=== PATIENT | female | born 1975 | race Caucasian/White ===

== ENCOUNTER 2017-07-01 16:31 | Emergency (ER) | payer MEDICAID ==
[2017-07-01 16:46] VITALS: BP 156/86
[2017-07-01] MEDS ORDERED: Acetaminophen/HYDROcodone 325-5 MG Tab PO ONE (16:59)
--- NOTE | 2017-07-01 17:05 | EDM.PDOC ---
ED HPI GENERAL MEDICAL PROBLEM - General Chief Complaint: ENT Problem Stated Complaint: toothache Time Seen by Provider: 07/01/17 16:50 Source of Information: Reports: Patient History Limitations: Reports: No Limitations - History of Present Illness INITIAL COMMENTS - FREE TEXT/NARRATIVE: Mehnaz presents with complaints of upper left dental pain for 2 days. She has not taken naproxen or ibuprofen for pain. 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: - Past Surgical History HEENT Surgical History: Reports: Oral Surgery Social & Family History - Family History Cardiac: Reports: Hypertension Endocrine/Metabolic: Reports: Hypothyroidism - Tobacco Use Smoking Status *Q: Heavy Tobacco Smoker Years of Tobacco use: 30 Packs/Tins Daily: 1 Used Tobacco, but Quit: No Second Hand Smoke Exposure: Yes - Caffeine Use Caffeine Use: Reports: Soda - Alcohol Use Days Per Week of Alcohol Use: 0 - Recreational Drug Use Recreational Drug Use: No Drug Use in Last 12 Months: Yes Recreational Drug Type: Reports: Marijuana/Hashish Recreational Drug Use Frequency: Monthly Recreational Drug Last Use: 06/26/14 ED ROS ENT - Review of Systems Review Of Systems: See Below Constitutional: Reports: Fever. Denies: Chills, Weakness, Fatigue, Diaphoresis HEENT: Reports: Dental Pain. Denies: Ear Pain, Eye Pain, Nose Pain, Sinus Problem, Throat Pain, Throat Swelling Respiratory: Denies: Shortness of Breath, Wheezing, Cough Cardiovascular: Denies: Chest Pain, Dyspnea on Exertion, Edema, Lightheadedness , Palpitations Endocrine: Reports: No Symptoms GI/Abdominal: Denies: Constipation, Diarrhea, Nausea, Vomiting Musculoskeletal: Denies: Neck Pain, Joint Pain, Joint Swelling, Muscle Pain, Muscle Stiffness Skin: Reports: Other (no edema). Denies: Rash, Erythema, Wound Neurological: Reports: No Symptoms Hematologic/Lymphatic: Reports: No Symptoms Immunologic: Reports: No Symptoms ED EXAM, ENT - Physical Exam Exam: See Below Text/Narrative:: Mehnaz is an alert, oriented and pleasant 42 year old female presenting with complaints of left upper dental pain for 2 days. General Appearance: Alert, WD/WN, Mild Distress Eye Exam: Bilateral Eye: EOMI, PERRL Ears: Normal External Exam, Normal Canal, Hearing Grossly Normal, Normal TMs Nose: Normal Inspection, Normal Mucousa, No Blood Mouth/Throat: Dental Pain, Gum Swelling, Other (Multiple missing teeth and dental caries. Pain to left upper teeth. ). No: Bleeding, Oral Ulcers, Throat Pain, Throat Swelling, Tongue Swelling, Tonsillar Erythema, Tonsillar Exudates, Uvular Deviation, Uvular Edema Head: Atraumatic, Normocephalic. No: Facial Ecchymosis, Facial Swelling, Facial Tenderness, Sinus Tenderness Neck: Normal Inspection, Supple, Non-Tender, Full Range of Motion. No: Lymphadenopathy (R), Lymphadenopathy (L) Respiratory/Chest: No Respiratory Distress, Lungs Clear, Normal Breath Sounds, No Accessory Muscle Use, Chest Non-Tender Cardiovascular: Normal Peripheral Pulses, Regular Rate, Rhythm, No Edema, No Murmur, No Rub Back: Normal Inspection, Full Range of Motion. No: CVA Tenderness (R), CVA Tenderness (L) Extremities: Normal Inspection, Normal Range of Motion, Non-Tender, No Pedal Edema, Normal Capillary Refill Neurological: Alert, Oriented, CN II-XII Intact, Normal Cognition, Normal Gait, No Motor/Sensory Deficits Psychiatric: Normal Affect, Normal Mood Skin: Warm, Dry, Intact, Normal Color, No Rash Lymphatic: No Adenopathy Course - Vital Signs Last Recorded V/S: Last Vital Signs Temp 37.2 C 07/01/17 16:48 Pulse 107 H 07/01/17 16:48 Resp 18 07/01/17 16:48 BP 156/86 H 07/01/17 16:48 Pulse Ox 98 07/01/17 16:48 - Orders/Labs/Meds Meds: Medications Discontinued Medications Generic Name Dose Route Start Last Admin Trade Name Salbadorq PRN Reason Stop Dose Admin Hydrocodone Bitart/Acetaminophen 1 tab 07/01/17 16:59 07/01/17 17:17 [place] 325-5 Mg PO 07/01/17 17:00 1 tab ONETIME ONE Administration Departure - Departure Time of Disposition: 17:13 Disposition: Home, Self-Care 01 Condition: Good Clinical Impression: Dental caries, Pain, dental - Discharge Information Referrals: PCP,None [Primary Care Provider] - Forms: ED Department Discharge Additional Instructions: You are provided a referral to dental this coming as directed. Take naproxen 500mg by mouth twice per day (hard copy script provided for 14 days) Take clindamycin 150mg, two tablets four times a day by mouth until gone. Dental clinic may give you more antibiotics to take, follow up with them as directed. You were given a hydrocodone in the ER to assist with pain. Follow up with primary provider for additional needs/referrals. Return to ER for worsening, issues or concerns. - Assessment/Plan Plan: Patient provided a referral to dental this coming as directed. Take naproxen 500mg by mouth twice per day (hard copy script provided for 14 days) Take clindamycin 150mg, two tablets four times a day by mouth until gone. Dental clinic may give you more antibiotics to take, follow up with them as directed. Patient given a hydrocodone in the ER to assist with pain. Follow up with primary provider for additional needs/referrals. Return to ER for worsening, issues or concerns.
== END 2017-07-01 17:28 | disposition home or self-care (01) ==
LOC: JP.ED 16:31
DX: K02.9 Dental caries, unspecified (principal); F17.210 Nicotine dependence, cigarettes, uncomplicated; Z98.818 Other dental procedure status; Z88.1 Allergy status to other antibiotic agents
CPT/HCPCS: 99283; A9270

== ENCOUNTER 2018-01-12 10:08 | Emergency (ER) | payer MEDICAID ==
[2018-01-12 10:28] VITALS: BP 140/86
[2018-01-12] MEDS ORDERED: Acetaminophen/oxyCODONE 325-5 MG Tab PO ONE (10:45)
--- NOTE | 2018-01-12 10:49 | EDM.PDOC ---
ED HPI GENERAL MEDICAL PROBLEM - General Chief Complaint: ENT Problem Stated Complaint: TOP RT TOOTH PAIN Time Seen by Provider: 01/12/18 10:45 Source of Information: Reports: Patient History Limitations: Reports: No Limitations - History of Present Illness INITIAL COMMENTS - FREE TEXT/NARRATIVE: pt arrived with pain in the rt upper jaw area. She broke a tooth 2 days ago and the pain has been progressive. Onset: Today Duration: Hour(s): Location: Reports: Face Associated Symptoms: Reports: Other (pt broke a tooth and is having swelling of the gums nd increased pain. 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: - Past Surgical History HEENT Surgical History: Reports: Oral Surgery Social & Family History - Family History Cardiac: Reports: Hypertension Endocrine/Metabolic: Reports: Hypothyroidism - Tobacco Use Smoking Status *Q: Current Every Day Smoker Years of Tobacco use: 21 Packs/Tins Daily: 0.5 Used Tobacco, but Quit: No Second Hand Smoke Exposure: Yes - Caffeine Use Caffeine Use: Reports: Soda - Alcohol Use Days Per Week of Alcohol Use: 0 - Recreational Drug Use Recreational Drug Use: No Drug Use in Last 12 Months: Yes Recreational Drug Type: Reports: Marijuana/Hashish Recreational Drug Use Frequency: Monthly Recreational Drug Last Use: 06/26/14 ED ROS ENT - Review of Systems Review Of Systems: See Below Constitutional: Reports: No Symptoms HEENT: Reports: Dental Pain Respiratory: Reports: No Symptoms Cardiovascular: Reports: No Symptoms Endocrine: Reports: No Symptoms GI/Abdominal: Reports: No Symptoms : Reports: No Symptoms ED EXAM, ENT - Physical Exam Exam: See Below Text/Narrative:: pt arrived with increased pain in the rt upper gum line. She broke one of the carrious teeth. Exam Limited By: No Limitations General Appearance: Alert, Anxious, Moderate Distress Ears: Normal TMs Nose: Normal Inspection Mouth/Throat: Dental Tenderness, Dry Mucous Membrane, Other (pt has pain in the upper gum line. She has redness on the gums. ) Head: Atraumatic Neck: Normal Inspection Respiratory/Chest: No Respiratory Distress Cardiovascular: Regular Rate, Rhythm Course - Vital Signs Last Recorded V/S: Last Vital Signs Temp 36.4 C 01/12/18 10:26 Pulse 84 01/12/18 10:26 Resp 14 01/12/18 10:26 BP 140/86 01/12/18 10:26 Pulse Ox 93 L 01/12/18 10:26 - Orders/Labs/Meds Meds: Medications Discontinued Medications Generic Name Dose Route Start Last Admin Trade Name Freq PRN Reason Stop Dose Admin Oxycodone/Acetaminophen 1 tab 01/12/18 10:45 Percocet 325-5 Mg PO 01/12/18 10:46 ONETIME ONE Departure - Departure Time of Disposition: 10:47 Disposition: Home, Self-Care 01 Condition: Fair Clinical Impression: Infected dental caries - Discharge Information Referrals: PCP,None [Primary Care Provider] - Forms: ED Department Discharge Care Plan Goals: keep appt for extraction for thur, motrin 600mg tid, If pt has severe pain use norco 5/325 q6h prn for pain, clindomycin 300mg tid, use yogurt or probiotic while on the antibiotic.
== END 2018-01-12 11:02 | disposition home or self-care (01) ==
LOC: JP.ED 10:08
DX: K02.9 Dental caries, unspecified (principal); F17.210 Nicotine dependence, cigarettes, uncomplicated; Z88.1 Allergy status to other antibiotic agents
CPT/HCPCS: 99283; A9270

== ENCOUNTER 2021-12-20 12:00 | Emergency (ER) | payer MEDICAID ==
[2021-12-20 12:15] VITALS: BP 141/83; PULSE 98
== END 2021-12-20 13:02 | disposition home or self-care (01) ==
LOC: JP.ED 12:00
DX: K04.7 Periapical abscess without sinus (principal); Z72.0 Tobacco use; Z88.8 Allergy status to other drugs, medicaments and biological substances
CPT/HCPCS: 99282; 99283

== ENCOUNTER 2023-10-18 05:06 | Emergency (ER) | payer MEDICAID ==
[2023-10-18 05:22] VITALS: BP 144/77; PULSE 120
[2023-10-18 06:16] LABS: APPEARANCE,URINE CLEAR (CLEAR); BILIRUBIN,URINE NEGATIVE (NEGATIVE); COLOR,URINE YELLOW (YELLOW); GLUCOSE,URINE NEGATIVE (NEGATIVE); KETONES,URINE NEGATIVE (NEGATIVE); LEUKOCYTE ESTERASE,URINE NEGATIVE (NEGATIVE); NITRITE,URINE NEGATIVE (NEGATIVE); OCCULT BLOOD,URINE TRACE-INTACT (NEGATIVE); PROTEIN,URINE NEGATIVE (NEGATIVE); UROBILINOGEN,URINE 0.2 EU/dL (0.2-1.0)
[2023-10-18 06:41] LABS: AMORPHOUS SEDIMENT,URINE RARE; BACTERIA,URINE FEW; EPITHELIAL CELLS,URINE FEW; MUCUS,URINE NOT SEEN; RBC,URINE NOT SEEN (0-5); WBC,URINE NOT SEEN (0-5)
[2023-10-18 06:50] LABS: CORONAVIRUS COVID-19 NAA NEGATIVE (NEGATIVE); INFLUENZA A NAA NEGATIVE (NEGATIVE); INFLUENZA B NAA NEGATIVE (NEGATIVE); RESPIRATORY SYNCYTIAL VIR NAA NEGATIVE (NEGATIVE)
== END 2023-10-18 07:30 | disposition left against medical advice (07) ==
LOC: JP.ED 05:06
DX: Z53.21 Procedure and treatment not carried out due to patient leaving prior to being seen by health care provider (principal); Z20.822 Contact with and (suspected) exposure to COVID-19
CPT/HCPCS: 0241U; 81001

== ENCOUNTER 2024-05-16 18:31 | Emergency (ER) | payer MEDICAID ==
[2024-05-16 18:43] VITALS: BP 151/80; PULSE 89
== END 2024-05-16 19:16 | disposition home or self-care (01) ==
LOC: JP.ED 18:31
DX: K04.7 Periapical abscess without sinus (principal); F17.210 Nicotine dependence, cigarettes, uncomplicated; Z88.1 Allergy status to other antibiotic agents; Z88.8 Allergy status to other drugs, medicaments and biological substances; Z79.890 Hormone replacement therapy; Z79.899 Other long term (current) drug therapy; Z90.49 Acquired absence of other specified parts of digestive tract
CPT/HCPCS: 99283